=== PATIENT | female | born 1965 | race Caucasian/White ===

== ENCOUNTER 2018-02-17 23:02 | Observation (INO) | payer OTHER ==
[2018-02-17 23:51] LABS: CREATININE 0.9 mg/dL (0.5-1.5); POTASSIUM 3.2 mmol/L (3.5-5.1)
[2018-02-17 23:52] LABS: INR 1.15 (0.85-1.15); PARTIAL THROMBOPLASTIN TIME 27.2 SEC (26.3-35.5)
[2018-02-17 23:55] LABS: ALBUMIN 2.3 g/dL (3.5-5.0); BILIRUBIN,TOTAL 1.8 mg/dL (0.2-1.0); TOTAL PROTEIN, SERUM 7.3 g/dL (6.0-8.3)
[2018-02-17 23:56] LABS: EOSINOPHILS % (AUTO) 4.5 % (0.0-8.0); HEMATOCRIT 27.2 % (36-48); LYMPHOCYTES % (AUTO) 26.4 % (21.0-51.0); MEAN CORPUSCULAR HEMOGLOBIN 34.6 pg (27.0-33.0); MEAN CORPUSCULAR VOLUME 101.7 fL (79-99); MONOCYTES % (AUTO) 6.9 % (3.0-13.0); NEUTROPHILS % (AUTO) 61.2 % (40.0-77.0); PLATELET COUNT (AUTO) 239 K/uL (130-400); RED BLOOD CELL COUNT(AUTO) 2.67 MIL/uL (4.00-5.50); RED CELL DISTRIBUTION WIDTH 14.5 % (11.0-15.5); WHITE BLOOD COUNT (AUTO) 12.7 K/uL (4.8-10.8)
[2018-02-17] MEDS ORDERED: TRAMADOL HCL 50 MG TABLET ONE (23:59)
== END 2018-02-18 01:31 | disposition left against medical advice (07) ==
LOC: EDH 23:02 → EDHIP 23:03
PROVIDERS: ADMIT Internal Medicine Nephrology; ATTEND Internal Medicine Nephrology
DX: M43.8X6 Other specified deforming dorsopathies, lumbar region (principal); E87.6 Hypokalemia; K74.60 Unspecified cirrhosis of liver; D72.829 Elevated white blood cell count, unspecified; D64.9 Anemia, unspecified; E88.09 Other disorders of plasma-protein metabolism, not elsewhere classified; W11.XXXA Fall on and from ladder, initial encounter; Y93.89 Activity, other specified; Y92.009 Unspecified place in unspecified non-institutional (private) residence as the place of occurrence of the external cause; Y99.8 Other external cause status
CPT/HCPCS: 36415; 72131; 80053; 82150; 83690; 85025; 85610; 85730; 99285; G0378 ×2

== ENCOUNTER 2018-09-26 14:41 | Inpatient (IN) | payer OTHER, SELFPAY ==
[~2018-09-26] VITALS: Ht 167.6 cm; Wt 140.7 kg
[~2018-09-26 14:41] MED LIST: CHOL4PAC21 PO; CYAN-35 PO; FERR240T6 PO; FOLI0.8T PO; FURO40TA5 PO; LACT10SO9 PO; MIDO10TA PO; OMEP20CA10 PO; POTA99TA21 PO; SPIR100T5 PO
[2018-09-26 15:16] LABS: BASOPHILS % (AUTO) 1.3 % (0.0-5.0); EOSINOPHILS % (AUTO) 1.3 % (0.0-8.0); LYMPHOCYTES % (AUTO) 15.3 % (21.0-51.0); MEAN CORPUSCULAR HEMOGLOBIN 34.7 pg (27.0-33.0); MEAN CORPUSCULAR HGB CONC 32.7 g/dL (32.0-36.0); MEAN CORPUSCULAR VOLUME 106.2 fL (79-99); MONOCYTES % (AUTO) 7.3 % (3.0-13.0); NEUTROPHILS % (AUTO) 74.8 % (40.0-77.0); NUCLEATED RED BLOOD CELLS 0.5 % (0.0-0.19); PLATELET COUNT (AUTO) 160 K/uL (130-400); RED BLOOD CELL COUNT(AUTO) 1.96 MIL/uL (4.00-5.50); RED CELL DISTRIBUTION WIDTH 18.4 % (11.0-15.5); WHITE BLOOD COUNT (AUTO) 12.9 K/uL (4.8-10.8)
[2018-09-26 15:17] LABS: HEMATOCRIT 20.8 % (36-48)
[2018-09-26 15:34] LABS: INR 1.67 (0.85-1.15); PARTIAL THROMBOPLASTIN TIME 42.1 SEC (26.3-35.5); PROTHROMBIN TIME 17.4 SEC (9.6-11.6)
[2018-09-26 16:08] LABS: ALBUMIN 1.9 g/dL (3.5-5.0); BILIRUBIN,TOTAL 6.4 mg/dL (0.2-1.0); CREATININE 2.2 mg/dL (0.5-1.5); TOTAL PROTEIN, SERUM 5.6 g/dL (6.0-8.3)
[2018-09-26 16:10] LABS: POTASSIUM 2.4 mmol/L (3.5-5.1)
[2018-09-26] MEDS ORDERED: POTASSIUM CHLORIDE 20MEQ/100ML 200 ML IV ONE (16:15)
[2018-09-26] MEDS ORDERED: ALBUMIN (HUMAN) 25% 100 ML IV ONE (16:44)
[2018-09-26] MEDS ORDERED: LACTULOSE 20 GM/30 ML UDCUP ONE (17:56)
[2018-09-26] MEDS ORDERED: SODIUM CHLORIDE 0.9% 1000ML 1,000 ML IV SCH (18:54)
[2018-09-26] MEDS ORDERED: LIDOCAINE HCL-MPF 1% 2ML VIAL IVP PRN (19:00)
[2018-09-26] MEDS ORDERED: ACETAMINOPHEN 325 MG TAB PO PRN (19:00)
[2018-09-26] MEDS ORDERED: MAGNESIUM 2GM PREMIX 50ML 50 ML IV PRN (19:00)
[2018-09-26] MEDS ORDERED: ONDANSETRON HCL 4 MG/2 ML VIAL IV PRN (19:00)
[2018-09-26 23:00] VITALS: BP 146/77
--- NOTE | 2018-09-26 23:00 | NUR ---
TRANSFERRED PT FROM [facility] TO BED WITH X4 ASST'S. NOTED ALL OF SKIN WITH ANASARCA 4+ BLISTERS SEEPING SEROUS; MULTIPLE RUPTURED BLISTERS/SKIN TEARS. PT DOES NOT FOLLOW COMMANDS, DOES NOT OPEN EYES, ONLY CONTINUOUS SOFT MOANING ALOUD NOTED. IV SITE AT RT AC LEAKING AND RESISTANCE TO NS FLUSH; SITE DISCONTINUED. HUSB AT BS "ANJALI ScruggsKennyANJANA" HAS POA, STATED SHE IS DNR BUT WILLING TO ACCEPT BLOOD PRODUCTS/TUBE FEEDING/DIALYSIS.
[2018-09-27] VITALS (10 sets, daily range): BP systolic 127–152; BP diastolic 54–94
--- NOTE | 2018-09-27 00:35 | NUR ---
NOTIFIED [facility] (AT BEDSIDE NOW) OF NEED FOR PICC/CVL D/T MANY UNSUCCESSFUL ATTEMPTS TO START AN IV BY X2 ICU NURSES. ORDER OBTAINED FOR PICC. WILL HAVE HUSB SIGN CONSENT IN AM.
[2018-09-27 04:42] LABS: EOSINOPHILS % (AUTO) 0.7 % (0.0-8.0); HEMATOCRIT 22.1 % (36-48); LYMPHOCYTES % (AUTO) 13.3 % (21.0-51.0); MEAN CORPUSCULAR HEMOGLOBIN 33.5 pg (27.0-33.0); MEAN CORPUSCULAR VOLUME 101.6 fL (79-99); MONOCYTES % (AUTO) 4.9 % (3.0-13.0); NEUTROPHILS % (AUTO) 80.1 % (40.0-77.0); NUCLEATED RED BLOOD CELLS 0.9 % (0.0-0.19); PLATELET COUNT (AUTO) 118 K/uL (130-400); RED BLOOD CELL COUNT(AUTO) 2.18 MIL/uL (4.00-5.50); RED CELL DISTRIBUTION WIDTH 21.6 % (11.0-15.5)
[2018-09-27 04:44] LABS: ALBUMIN 2.1 g/dL (3.5-5.0); BILIRUBIN,TOTAL 8.9 mg/dL (0.2-1.0); CREATININE 2.4 mg/dL (0.5-1.5); TOTAL PROTEIN, SERUM 5.5 g/dL (6.0-8.3)
[2018-09-27 04:48] LABS: POTASSIUM 2.6 mmol/L (3.5-5.1)
--- NOTE | 2018-09-27 05:20 | NUR ---
AFTER MANY ATTEMPTS TO TRY START IV, AND ALL FAILED EVEN WITH USE OF VEIN-FINDER MACHINE, [facility] NOTIFIED OF NEED FOR PICC THIS AM. PHONE CONSENT OBTAINED BY MELISSA AYON" .
[2018-09-27] MEDS: POTASSIUM CHLORIDE 20MEQ/100ML 100 ML IV PRN ×2 (06:00→08:33)
--- NOTE | 2018-09-27 06:00 | NUR ---
IV START DONE TO LT AC 20G BY CUONG (ER NURSE). HE STATED HE COULD NOT SEE NOR PALPATE VEIN BUT "LOCATED IT ANATOMICALLY." 10ML FLUSH DONE AND NO IMMEDIATE INCREASED EDEMA NOTED HOWEVER NO BLOOD COULD BE ASPIRATED. HGB HAS RISEN THIS AM TO 7.3 BUT K+ REMAINS CRITICAL LOW AT 2.6 THEREFORE WILL INFUSE POTASSIUM REPLACEMENT NOW.
[2018-09-27 06:17] LABS: INR 1.69 (0.85-1.15); PARTIAL THROMBOPLASTIN TIME 37.1 SEC (26.3-35.5); PROTHROMBIN TIME 17.6 SEC (9.6-11.6)
--- NOTE | 2018-09-27 07:20 | NUR ---
PT RECEIVED IN BED, ABDOMEN IS DISTENDED, PT IS OBTUNDED, VERY JAUNDICE, MOANS WHEN TOUCHED OR MOVED. PT'S MOTHER IS AT BEDSIDE. DISCUSSED WITH HER POC REGARDING PICC LINE. SHE DID INFORM ME THAT SHE AND HER SON-IN-LAW HAD BEEN DISCUSSING HOSPICE AND COMFORT MEASURES. I DID INFORM HER THAT I CAN PLACE A SOCIAL SERVICE CONSULT TO GIVE THEM MORE INFORMATION REGARDING HOSPICE. PT IS VERY EDEMATOUS, HAVING TO CHANGE BLUE PADS FREQUENTLY D/T SEEPAGE FROM EXTREMITIES. PT IS DNR.
--- NOTE | 2018-09-27 08:10 | NUR ---
MD ROUNDS DR. MARVIN ALDRIDGE IN TO SEE PATIENT. DISCUSSED WITH MOTHER THAT PATIENT IS NOT A CANDIDATE FOR DIALYSIS OR A LIVER TRANSPLANT. AGAIN SHE MENTIONED HOSPICE AND DR. MARVIN ALDRIDGE WAS IN AGREEMENT.
[2018-09-27] MEDS: FUROSEMIDE 10 MG/ML 4ML VIAL IV SCH ×2 (08:30→20:30)
[2018-09-27] MEDS ORDERED: PANTOPRAZOLE SODIUM 40 MG TABLET.DR PO SCH (09:00)
--- NOTE | 2018-09-27 09:20 | NUR ---
ROUNDS JED PIN PULLER IN TO SEE PATIENT. SHE SPOKE WITH PT'S MOTHER AND PT'S SPOUSE REGARDING HOSPICE. PT IS TO BE COMFORT MEASURES. WILL CONT TO MONITOR.
[2018-09-27] MEDS ORDERED: MORPHINE SULFATE 2 MG/ML 1ML SYG IM PRN (09:45)
[2018-09-27] MEDS ORDERED: MORPHINE SULFATE 4 MG/1ML SYG ONE (10:06)
--- NOTE | 2018-09-27 10:09 | NUR ---
MORPHINE 1 MG IV ADMINISTERED. WILL CONT TO MONITOR.
[2018-09-27] MEDS ORDERED: MORPHINE SULFATE 2 MG/ML 1ML SYG IV PRN (10:45)
--- NOTE | 2018-09-27 12:30 | NUR ---
REPORT GIVEN TO LEAH PERALTA. PT TRANSFERRED TO ROOM 404.
--- NOTE | 2018-09-27 13:47 | NUR ---
DC PLAN VISITED WITH PATIENT. PATIENT LIVES WITH SPOUSE INDEPENDENT ABLE TO PERFORM ADL'S. PATIENT HAS HEPATIC ENCELOPATHY. DISCUSSED HOSPICE WITH FAMILY. PATIENT DNR. SIGNED JORDAN KWAME. INFO SENT. SPOKE TO REP WILL VISIT WITH FAMILY. PATIENT INSURANCE SHOULD KICK IN TOMORROW. Addendum: 09/27/18 at 1349 by PITA PHAN RN CM Amended: Links added.
[2018-09-27] MEDS: LACTULOSE 20 GM/30 ML UDCUP PR SCH ×2 (14:00→21:19)
--- NOTE | 2018-09-27 20:00 | NUR ---
PM ASSESSMENT PATIENT RESTING IN BED FAMILY AT SIDE. PATIENT IS DNR AND COMFORT MEASURES ONLY PER PATIENT AND FAMILY REQUEST. NO VITAL I Addendum: 09/27/18 at 4 by AMINA OLIVAS RN RN NO VITAL SIGNS LABS OR MEDS TO BE GIVEN OTHER THAN FOR PAIN AND COMFORT. PATIENT IS EDEMATOUS TO ALL EXTREMITIES AND IS WEEPING FROM ALL EXTREMITIES. PATIENT AIRWAY IS INTACT AT THIS TIME ON O2 ATG Addendum: 09/27/18 at 2214 by AMINA OLIVAS RN RN AT 4 LPM VIA CARLOS.
[2018-09-28] MEDS: LACTULOSE 20 GM/30 ML UDCUP PR SCH (05:21)
--- NOTE | 2018-09-28 06:00 | NUR ---
PRONOUNCEMENT SUMMONED BY STAFF TO PATIENT'S ROOM. PATIENT SUPINE IN BED WITH SPOUSE AND MOTHER AT BEDSIDE. PUPILS FIXED AND DILATED. NO BREATH SOUNDS OR HEART TONES AUDIBLE ON AUSCULTATION. NO VITAL SIGNS CHECKED PER FAMILY MEMBERS SINCE PATIENT TRANSFERRED FROM ICU
== END 2018-09-28 06:00 | disposition expired | DRG 442 ==
LOC: EDH 14:41 → EDHIP 14:42 → 2BH 22:17 → 4AH 09-27 12:39
PROVIDERS: ADMIT Hospitalist; ATTEND Hospitalist
PROC: 30233N1 Transfusion of Nonautologous Red Blood Cells into Peripheral Vein, Percutaneous Approach (ICD-10-PCS; principal; 2018-09-27)
DX: K72.90 Hepatic failure, unspecified without coma (principal); D62 Acute posthemorrhagic anemia; N17.9 Acute kidney failure, unspecified; D68.59 Other primary thrombophilia; I50.32 Chronic diastolic (congestive) heart failure; N18.3 Chronic kidney disease, stage 3 (moderate); E87.6 Hypokalemia; K74.60 Unspecified cirrhosis of liver; Z51.5 Encounter for palliative care; Z66 Do not resuscitate; Z82.3 Family history of stroke; Z83.3 Family history of diabetes mellitus; Z82.49 Family history of ischemic heart disease and other diseases of the circulatory system
CPT/HCPCS: 36415; 71045; 80053; 82140; 82270; 83735; 85025; 85610; 85730; 86850; 86900; 86901; 86922; 93005; 99291; G0378; J2270; J3480; J3490; P9016; P9046